=== PATIENT | female | born 1990 | race Caucasian/White ===

== ENCOUNTER 2017-01-22 12:47 | Emergency (ER) | payer OTHER ==
[~2017-01-22 12:47] MED LIST: ACET325 PO; CHLO.12%30 SSP; CLIN1CAP5 PO
[2017-01-22 12:49] VITALS: BP 95/75; PULSE 89; RESP 16; TEMP 98.2; O2SAT 98
--- NOTE | 2017-01-22 13:16 | PD ---
Physical Exam Date Seen by Provider: Jan 22, 2017 Time Seen by Provider: 13:15 Narrative 27-year-old female believes she is 9 weeks presents with abdominal pain and cramping. She does have dysuria. She denies vaginal bleeding at this time. Urinalysis is ordered. Vital signs are stable. Patient is awaiting placement Data Data Last Documented VS Vital Signs Date Time Temp Pulse Resp B/P (MAP) Pulse Ox O2 Delivery O2 Flow Rate FiO2 01/22/17 12:49 98.2 89 16 95/75 (82) 98 Orders Orders Urinalysis - C+S If Indicated (01/22/17 13:00) Ed Urine Pregnancytest Poc (01/22/17 13:00) MDM Medical Record Reviewed: Yes Supervised Visit with CHUCK: Yes Condition: Stable Kevan Dawn Jan 22, 2017 13:16
[2017-01-22 13:41] LABS: BACTERIA, URINE RARE /hpf; BLOOD, URINE NEG (NEG); COMMENT (UR) CULTURE INDICATED; CULTURE IF INDICATED CULTURE INDICATED; GLUCOSE,URINE NEG (NEG); KETONE, URINE NEG (NEG); MUCUS URINE FEW /lpf (OCC); NITRITE,URINE NEG (NEG); PH, URINE 6.5 (5.0-8.5); SQUAMOUS EPITHELIAL CELL URINE 5 /hpf (0-5); URINE COLOR YELLOW (YELLW/STRAW)
[2017-01-22] MEDS ORDERED: NITROFURANTOIN MONOHYD MACROCR 100 MG CAP PO ONE (14:45)
--- NOTE | 2017-01-22 14:45 | PD ---
HPI Chief Complaint: Complaint Time Seen by Provider: 14:39 Travel History International Travel<30 days: No Contact w/Intl Traveler<30days: No Traveled to known affect area: No History of Present Illness HPI C/O DYSURIA, FREQUENCY, URGENCY FOR PAST 2 DAYS, 4/10 WITH URINATION ONLY, NO N/ V/D/FEVER PFSH Past Medical History Blood Disorders: No Anxiety: Yes Depression: Yes Cancer: No Cardiovascular Problems: No Diminished Hearing: No Endocrine: No Genitourinary: No Immune Disorder: No Musculoskeletal: No Neurologic: No Psychiatric: Yes Reproductive: No Respiratory: No ?: : 3 Para: 1 Miscarriage: 2 Past Surgical History Section: Yes Social History Alcohol Use: Yes (occ) Tobacco Use: No Substance Use: Yes (meth/dilaudid iv) Allergies-Medications (Allergen,Severity, Reaction): Coded Allergies: penicillin G (Unverified Allergy, Severe, 12/16/16) Reported Meds & Prescriptions Reported Meds & Active Scripts Active Peridex Oral Rinse (Chlorhexidine Gluconate) 0.12 % Aziza 15 Ml SSP Q8HR 5 Days Clindamycin Hcl (Clindamycin HCl) 150 Mg Cap 2 Capl PO Q8HR 7 Days Tylenol (Acetaminophen) 325 Mg Tab 325 Mg PO Q6HR PRN Review of Systems Except as stated in HPI: all other systems reviewed are Neg Genitourinary: Positive: Urgency, Frequency, Dysuria Physical Exam Narrative GENERAL: SKIN: Warm and dry. HEAD: Atraumatic. Normocephalic. EYES: Pupils equal and round. No scleral icterus. No injection or drainage. ENT: No nasal bleeding or discharge. Mucous membranes pink and moist. NECK: Trachea midline. No JVD. CARDIOVASCULAR: Regular rate and rhythm. RESPIRATORY: No accessory muscle use. Clear to auscultation. Breath sounds equal bilaterally. GASTROINTESTINAL: Abdomen soft, non-tender, nondistended. MUSCULOSKELETAL: Extremities without clubbing, cyanosis, or edema. No obvious deformities. NEUROLOGICAL: Awake and alert. No obvious cranial nerve deficits. Motor grossly within normal limits. Five out of 5 muscle strength in the arms and legs. Normal speech. PSYCHIATRIC: Appropriate mood and affect; insight and judgment normal. Data Data Last Documented VS Vital Signs Date Time Temp Pulse Resp B/P (MAP) Pulse Ox O2 Delivery O2 Flow Rate FiO2 01/22/17 12:49 98.2 89 16 95/75 (82) 98 Orders Orders Urinalysis - C+S If Indicated (01/22/17 13:00) Ed Urine Pregnancytest Poc (01/22/17 13:00) Urine Culture (01/22/17 13:06) Nitrofurantoin Monohyd Macrocr (Macrobid (01/22/17 14:45) Labs Laboratory Tests Test 01/22/17 13:06 Urine Color YELLOW Urine Turbidity HAZY Urine pH 6.5 Urine Specific [place] 1.016 Urine Protein NEG mg/dL Urine Glucose (UA) NEG mg/dL Urine Ketones NEG mg/dL Urine Occult Blood NEG Urine Nitrite NEG Urine Bilirubin NEG Urine Urobilinogen LESS THAN 2.0 MG/DL Urine Leukocyte Esterase LARGE Urine RBC 7 /hpf Urine WBC 21 /hpf Urine Squamous Epithelial Cells 5 /hpf Urine Amorphous Sediment RARE Urine Bacteria RARE /hpf Urine Mucus FEW /lpf Microscopic Urinalysis Comment CULTURE INDICATED MDM Medical Decision Making Medical Screen Exam Complete: Yes Emergency Medical Condition: Yes Medical Record Reviewed: Yes Differential Diagnosis UTI V STERILE PYURIA Narrative Course PATIENT UA C/W UTI, WILL TREAT WITH MACROBID AND ZOFRAN AND REFER TO WOMEN'S CARE NOW Diagnosis Primary Impression: UTI (urinary tract infection) Qualified Codes: N30.00 - Acute cystitis without hematuria [facility] Patient Instructions: General Instructions, Urinary Tract Infection in Women ( ED) Scripts Nitrofurantoin Monohydrate Macrocrystals (Macrobid) 100 Mg Capsule 100 MG PO BID for Infection for 10 Days, #20 CAP 0 Refills Prov: Vargas Raya MD 01/22/17 Ondansetron Odt (Zofran Odt) 4 Mg Tab 4 MG SL Q6HR Y for Nausea/Vomiting, #21 TAB 0 Refills Prov: Vargas Raya MD 01/22/17 Disposition: 01 DISCHARGE HOME Condition: Stable Vargas Raya MD Jan 22, 2017 14:45
[2017-01-22] MEDS ORDERED: MACR100C2 PO (14:50)
[2017-01-22] MEDS ORDERED: ZOFR4TAB3 SL (14:50)
== END 2017-01-22 15:21 | disposition home or self-care (01) ==
LOC: NEPD 12:47
DX: O23.11 Infections of bladder in pregnancy, first trimester (principal); B96.20 Unspecified Escherichia coli [E. coli] as the cause of diseases classified elsewhere; Z3A.09 9 weeks gestation of pregnancy
CPT/HCPCS: 81001; 84703; 87077; 87086; 87186; 99284

== ENCOUNTER 2017-07-17 05:58 | Inpatient (IN) | payer OTHER ==
[~2017-07-17] VITALS: Ht 160 cm; Wt 55.8 kg
[~2017-07-17 05:58] MED LIST changes: -ACET325 PO; -CHLO.12%30 SSP; -CLIN1CAP5 PO; +MACR100C2 PO; +ZOFR4TAB3 SL
[2017-07-17] MEDS ORDERED: Prenatal Vitamin PO (06:09)
[2017-07-17] MEDS: LACTATED RINGER'S 1000 ML IV SCH (06:30)
[2017-07-17] MEDS ORDERED: LACTATED RINGER'S 1000 ML IV ONE (06:30)
[2017-07-17] MEDS ORDERED: CITRIC ACID-SODIUM CITRATE LIQ 30 ML UDC PO SCH (06:30)
[2017-07-17 06:47] LABS: AUTOMATED NEUTROPHIL # 5.4 TH/MM3 (1.8-7.7); BASOPHIL # 0.1 TH/MM3 (0-0.2); BASOPHIL % 0.8 % (0.0-2.0); EOSINOPHIL # 0.2 TH/MM3 (0-0.4); HEMATOCRIT 34.7 % (35.0-46.0); HEMOGLOBIN 10.9 GM/DL (11.6-15.3); LYMPH % 34.1 % (9.0-44.0); LYMPHOCYTE # 3.3 TH/MM3 (1.0-4.8); MEAN CELL VOLUME 80.2 FL (80.0-100.0); MEAN CORPUSCULAR HEMOGLOBIN 25.3 PG (27.0-34.0); MEAN CORPUSCULAR HGB CONC 31.5 % (32.0-36.0); MEAN PLATELET VOLUME 10.1 FL (7.0-11.0); MONO % 7.1 % (0.0-8.0); MONOCYTE # 0.7 TH/MM3 (0-0.9); PLATELET COUNT 149 TH/MM3 (150-450); RED BLOOD COUNT 4.32 MIL/MM3 (4.00-5.30); RED CELL DISTRIBUTION WIDTH 19.5 % (11.6-17.2); WHITE BLOOD COUNT 9.7 TH/MM3 (4.0-11.0)
[2017-07-17] MEDS ORDERED: MORPHINE SULFATE PF 5 MG/10 ML VIAL ONE (06:50)
[2017-07-17] MEDS ORDERED: CLINDAMYCIN 600 MG/NS 100 ML IV SCH ×2 (07:00)
[2017-07-17 07:29] LABS: BILIRUBIN, URINE NEG (NEG); BLOOD, URINE NEG (NEG); GLUCOSE,URINE NEG (NEG); KETONE, URINE NEG (NEG); NITRITE,URINE NEG (NEG); PH, URINE 7.5 (5.0-8.5); URINE COLOR YELLOW (YELLW/STRAW); URINE LEUKOCYTE ESTERASE MOD (NEG)
[2017-07-17] MEDS ORDERED: OXYTOCIN 30 UNITS-500ML PREMIX 500 ML ONE (09:01)
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
[2017-07-17] MEDS ORDERED: ACETAMINOPHEN 1000 MG/100 ML 100 ML IV ONE ×2 (09:30→11:15)
[2017-07-17] MEDS ORDERED: SODIUM CHLORIDE 0.9% FLUSH 10 ML FLUSH IV FLUSH PRN (09:30)
[2017-07-17] MEDS ORDERED: SIMETHICONE 80 MG CHEWABLE TAB PO PRN (09:30)
[2017-07-17] MEDS ORDERED: DOCUSATE SODIUM 50 MG/SENNA 8.6 MG TAB PO PRN (09:30)
[2017-07-17] MEDS ORDERED: ONDANSETRON HCL 4 MG/2 ML VIAL IV PUSH PRN (09:30)
[2017-07-17] MEDS ORDERED: OXYTOCIN 30 UNITS-500ML PREMIX 500 ML IV ONE (09:30)
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
[2017-07-17] MEDS ORDERED: OXYTOCIN 10 UNIT/ML AMP IV ONE (12:00)
[2017-07-17] MEDS ORDERED: PHENYLEPH/NS 1000 MCG/10 ML SYR IV ONE (12:00)
[2017-07-17] MEDS ORDERED: ONDANSETRON HCL 4 MG/2 ML VIAL IV ONE (12:00)
[2017-07-17] MEDS ORDERED: DEXAMETHASONE SOD PHOS 4 MG/ML VIAL IV ONE (12:00)
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
--- NOTE | 2017-07-17 13:58 | ECHRPT ---
Indication: ABNORMAL EKG/ VEGETATIONS CONCLUSIONS Normal left ventricular size. Wall thickness is normal. The left ventricular systolic function is low normal with an estimated ejection fraction in the rang e of 50- 55%. Normal wall motion. There is mild tricuspid valve regurgitation. BP: / HR: Rhythm: MEASUREMENTS (Male / Female) Normal Values Technical Quality:Good 2D ECHO LV Diastolic Diameter PLAX 5.2 cm 4.2 - 5.9 / 3.9 - 5.3 cm LV Systolic Diameter PLAX 4.0 cm IVS Diastolic Thickness 0.9 cm 0.6 - 1.0 / 0.6 - 0.9 cm LVPW Diastolic Thickness 0.6 cm 0.6 - 1.0 / 0.6 - 0.9 cm LV Relative Wall Thickness 0.3 RV Internal Dim ED PLAX 2.0 cm DOPPLER Mitral E Point Velocity 83.9 cm/s Mitral A Point Velocity 66.6 cm/s Mitral E to A Ratio 1.3 TR Peak Velocity 262.0 cm/s TR Peak Gradient 27.5 mmHg FINDINGS LEFT VENTRICLE Normal left ventricular size. Wall thickness is normal. The left ventricular systolic function is low normal with an estimated ejection fraction in the rang e of 50- 55%. Normal wall motion. RIGHT VENTRICLE Normal right ventricular size and systolic function. LEFT ATRIUM The left atrial size is normal. RIGHT ATRIUM The right atrial size is normal. ATRIAL SEPTUM Normal atrial septal thickness without atrial level shunting by limited color doppler interrogation. AORTA The aortic root and proximal ascending aorta are normal in size on limited imaging. MITRAL VALVE Trace mitral valve regurgitation. AORTIC VALVE Trileaflet aortic valve. No aortic valve stenosis or regurgitation. TRICUSPID VALVE There is mild tricuspid valve regurgitation. PULMONARY VALVE The pulmonary valve is not well visualized. VESSELS The inferior vena cava is normal in size. PERICARDIUM No pericardial effusion. Preston Truong MD (Electronically Signed) Final Date:17 July 2017 13:58
[2017-07-17] MEDS: LACTATED RINGER'S 1000 ML INJ 1,000 ML IV SCH (15:15)
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
[2017-07-17 16:00] VITALS: BP 99/60; PULSE 60; RESP 16; TEMP 97.5; O2SAT 96
[2017-07-17] MEDS: IBUPROFEN 600 MG TAB PO PRN (16:45)
--- NOTE | 2017-07-17 17:07 | MB ---
cc: Preston Truong MD DATE OF CONSULT: 07/17/2017 REASON FOR CONSULTATION: Bradycardia. HISTORY OF PRESENT ILLNESS: The patient is a 27-year-old white female with no major past medical history who today after section was noted to have bradycardia with heart rates in the 40s and 50s. The patient denies any dizziness, syncope, near syncope, shortness of breath, chest pain, pedal edema, paroxysmal nocturnal dyspnea, nausea, or headache. PAST MEDICAL HISTORY: None. CARDIAC MEDICATIONS: None. ALLERGIES: PENICILLIN. FAMILY HISTORY: There is no significant family history of cardiac disease. SOCIAL HISTORY: The patient denies alcohol or tobacco abuse. She had been abusing opiates prior to her arrest. REVIEW OF SYSTEMS: As in the history of present illness, otherwise negative or noncontributory. She also denies abdominal pain, melena, bright red blood per rectum, fevers, and vomiting. PHYSICAL EXAMINATION: VITAL SIGNS: Blood pressure has not been taken. Heart rate is 50 by palpation. GENERAL: She is a well-developed, well-nourished white female, in no acute distress. NECK: Jugular venous pressure is normal. Carotid pulses are 2+ bilaterally and without bruits. CHEST: Examination reveals clear lung callaway. CARDIAC: She has a regular rhythm and rate without S3, S4 or murmur. ABDOMEN: Aggressive palpation was not pursued. Bowel sounds are present. EXTREMITIES: Reveals no clubbing, cyanosis or edema. DIAGNOSTIC STUDIES: EKG shows sinus bradycardia, otherwise normal EKG. Laboratory data includes WBC 9.7, hemoglobin 10.9, platelets 149. Negative drug screen. IMPRESSION: Mild asymptomatic bradycardia in this 27-year-old white female with no major past medical history, status post uncomplicated section today. She has demonstrated no definite high degree atrioventricular block. Her current heart rate appears to be in the 50s. She has been completely asymptomatic. The etiology of the bradycardia is not entirely clear. Echocardiogram today was also unrevealing. RECOMMENDATIONS: Overnight monitoring. She can be discharged from the monitoring unit tomorrow morning if she remains stable. We will followup as needed. MD BRIJESH Meade/ESTRELLA , 04:51 PM , 05:06 PM AKIN
[2017-07-17] MEDS ORDERED: OXYTOCIN 30 UNITS-500ML PREMIX 500 ML IV PRN (19:30)
[2017-07-17 20:00] VITALS: BP 109/63; PULSE 65; RESP 18; TEMP 97.8; O2SAT 98
[2017-07-17] MEDS: SODIUM CHLORIDE 0.9% FLUSH 10 ML FLUSH IV FLUSH SCH (21:00)
[2017-07-17] MEDS ORDERED: ZOLPIDEM TARTRATE 5 MG TAB PO PRN (21:00)
[2017-07-17 23:00] VITALS: PULSE 82
[2017-07-18] VITALS (9 sets, daily range): BP systolic 111–131; BP diastolic 62–80; PULSE 57–84; RESP 16–18; TEMP 97.4–99; O2SAT 96–99
[2017-07-18] MEDS: LACTATED RINGER'S 1000 ML INJ 1,000 ML IV SCH (00:24)
[2017-07-18] MEDS: LACTATED RINGER'S 1000 ML IV SCH ×3 (02:30→15:31)
[2017-07-18] MEDS ORDERED: PILL SPLITTER OTHER PRN (07:45)
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
[2017-07-18] MEDS: SODIUM CHLORIDE 0.9% FLUSH 10 ML FLUSH IV FLUSH SCH (09:00)
[2017-07-18] MEDS: BUPRENORPHINE HCL 8 MG SUBLINGUAL TAB SL SCH (09:10)
[2017-07-18 10:16] LABS: AUTOMATED NEUTROPHIL # 8.3 TH/MM3 (1.8-7.7); BASOPHIL # 0.1 TH/MM3 (0-0.2); BASOPHIL % 0.8 % (0.0-2.0); EOSINOPHIL # 0.1 TH/MM3 (0-0.4); EOSINOPHIL % 0.8 % (0.0-4.0); HEMATOCRIT 29.9 % (35.0-46.0); HEMOGLOBIN 9.2 GM/DL (11.6-15.3); LYMPH % 21.4 % (9.0-44.0); LYMPHOCYTE # 2.5 TH/MM3 (1.0-4.8); MEAN CELL VOLUME 81.3 FL (80.0-100.0); MEAN CORPUSCULAR HEMOGLOBIN 25.1 PG (27.0-34.0); MEAN CORPUSCULAR HGB CONC 30.9 % (32.0-36.0); MEAN PLATELET VOLUME 10.9 FL (7.0-11.0); MONO % 6.6 % (0.0-8.0); MONOCYTE # 0.8 TH/MM3 (0-0.9); NEUT % 70.4 % (16.0-70.0); PLATELET COUNT 148 TH/MM3 (150-450); RED BLOOD COUNT 3.68 MIL/MM3 (4.00-5.30); RED CELL DISTRIBUTION WIDTH 19.7 % (11.6-17.2); WHITE BLOOD COUNT 11.8 TH/MM3 (4.0-11.0)
[2017-07-18 11:02] LABS: ALBUMIN 1.5 GM/DL (3.4-5.0); AST (GOT) 53 U/L (15-37); BLOOD UREA NITROGEN 9 MG/DL (7-18); CALCIUM 8.1 MG/DL (8.5-10.1); CHLORIDE 105 MEQ/L (98-107); CREATININE 0.58 MG/DL (0.50-1.00); GLOMERULAR FILTRATION RATE 125 ML/MIN (>89); SODIUM (NA) 140 MEQ/L (136-145)
[2017-07-18 11:05] LABS: ALKALINE PHOSPHATASE 191 U/L (45-117); ALT (GPT) 40 U/L (10-53); GLUCOSE,RANDOM 80 MG/DL (74-106); TOTAL BILIRUBIN ADULT 0.3 MG/DL (0.2-1.0); TOTAL PROTEIN 5.6 GM/DL (6.4-8.2)
[2017-07-18] MEDS: IBUPROFEN 600 MG TAB PO PRN ×2 (15:43→23:18)
[2017-07-18] MEDS ORDERED: DIPHTH/TETANUS/ACEL PERTUSSIS (BOOSTER) 0.5 ML VIAL/PFS IM ONE (16:00)
[2017-07-18] MEDS ORDERED: MEASLES, MUMPS, RUBELLA VACCINE 0.5 ML VIAL SQ ONE (16:00)
[2017-07-18] MEDS: SULFAMETHOXAZOLE-TRIMETHOPRIM DS 800-160 MG TAB PO SCH ×2 (17:42→21:00)
--- NOTE | 2017-07-18 18:20 | EKG ---
Date Performed: 07/17/2017 Time Performed: 10:25:57 PTAGE: 27 years EKG: SINUS BRADYCARDIA WITH SINUS ARRHYTHMIA LOW QRS VOLTAGE IN PRECORDIAL LEADS POSSIBLE RIGHT VENTRICULAR CONDUCTION DELAY BORDERLINE ECG Compared to PREVIOUS TRACING , no change. PREVIOUS TRACIN02/03/2014 19.00 DOCTOR: Tan Dunham Interpretating Date/Time 07/18/2017 18:17:46
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
[2017-07-19] MEDS ORDERED: SULF1TAB23 PO (09:01)
[2017-07-19 09:15] VITALS: BP 116/71; PULSE 98; RESP 18; TEMP 98.2
[2017-07-19] MEDS: SODIUM CHLORIDE 0.9% FLUSH 10 ML FLUSH IV FLUSH SCH (09:15)
[2017-07-19] MEDS: BUPRENORPHINE HCL 8 MG SUBLINGUAL TAB SL SCH (09:16)
[2017-07-19] MEDS: SULFAMETHOXAZOLE-TRIMETHOPRIM DS 800-160 MG TAB PO SCH (09:16)
[2017-07-19] MEDS: LACTATED RINGER'S 1000 ML IV SCH (12:54)
[2017-07-19] MEDS: IBUPROFEN 600 MG TAB PO PRN (13:56)
[2017-07-20] MEDS: IBUPROFEN 600 MG TAB PO PRN (06:03)
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
[2017-07-20] MEDS ORDERED: IBUP-232 PO (07:15)
[2017-07-20] MEDS ORDERED: BUPR8SUB SL (07:24)
[2017-07-20 08:02] VITALS: BP 104/67; PULSE 94; RESP 18; TEMP 98.1
[2017-07-20] MEDS: LACTATED RINGER'S 1000 ML IV SCH ×2 (09:07→14:32)
[2017-07-20] MEDS: SODIUM CHLORIDE 0.9% FLUSH 10 ML FLUSH IV FLUSH SCH (09:08)
[2017-07-20] MEDS: BUPRENORPHINE HCL 8 MG SUBLINGUAL TAB SL SCH (09:47)
[2017-07-20] MEDS: SULFAMETHOXAZOLE-TRIMETHOPRIM DS 800-160 MG TAB PO SCH (09:48)
--- NOTE | 2017-07-20 11:19 | PD.PSY.CON ---
Provisional Diagnosis Admission Date Jul 17, 2017 at 05:58 [place] I. Adjustment disorder with depressed mood vs baby blues, opiate use disorder in early sustained remission in a partial agonist. [place] II. Deferred [place] III. Hepatitis C, [place] IV. Incarcerated, history of drug abuse [place] V. 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 POD #3. Her plan is to go straight to [facility]. Consulted to psychiatry due to flat affect, suggest the symptoms of depression. Chart was reviewed. On psychiatric evaluation the patient is calm, cooperative, pleasant. She reports that she feels very happy to have her baby, at times she has been sad "because I am going to separate from my baby to go back to longterm, but I will get her back soon". She also states that she is motivated to continue a strengthening her life and going to an addiction program after being released. At this moment the patient denies anhedonia, she denies hopelessness, she denies helplessness, she denies suicidal and homicidal ideation, she denies visual and auditory hallucinations. During my evaluation the patient smiles often, she is able to share with me several plans for the future, such as going to [facility], keeping her sobriety, getting back her 7 years old son, going back to [employer] school. She does not present any paranoia, delusions, ideas of reference, loosening of associations, attention deficit, fluctuation of consciousness. Patient is fully oriented 3. She denies the use of illegal drugs and alcohol in the last month. Review of Systems Constitutional: DENIES: Diaphoretic episodes, Fatigue, Fever, Weight gain, Weight loss, Chills, Dizziness, Change in appetite, Night Sweats Endocrine: DENIES: Abnorml menstrual pattern, Heat/cold intolerance, Polydipsia , Polyuria, Polyphagia Eyes: DENIES: Blurred vision, Diplopia, Eye inflammation, Eye pain, Vision loss , Photosensitivity, Double Vision Ears, nose, mouth, throat: DENIES: Tinnitus, Hearing loss, Vertigo, Nasal discharge, Oral lesions, Throat pain, Hoarseness, Ear Pain, Running Nose, Epistaxis, Sinus Pain, Toothache, Odynophagia Respiratory: DENIES: Apneas, Cough, Snoring, Wheezing, Hemoptysis, Sputum production, Shortness of breath Cardiovascular: DENIES: Chest pain, Palpitations, Syncope, Dyspnea on Exertion , PND, Lower Extremity Edema, Orthopnea, Claudication Gastrointestinal: DENIES: Abdominal pain, Black stools, Bloody stools, Constipation, Diarrhea, Nausea, Vomiting, Difficulty Swallowing, Anorexia Genitourinary: DENIES: Abnormal vaginal bleeding, Dysmenorrhea, Dyspareunia, Sexual dysfunction, Urinary frequency, Urinary incontinence, Urgency, Hematuria , Dysuria, Nocturia, Vaginal discharge Musculoskeletal: DENIES: Joint pain, Muscle aches, Stiffness, Joint Swelling, Back pain, Neck pain Integumentary: DENIES: Abnormal pigmentation, Pruritus, Rash, Nail changes, Breast masses, Breast skin changes, Nipple discharge Immunologic/allergic: DENIES: Eczema, Urticaria Neurologic: DENIES: Abnormal gait, Headache, Localized weakness, Paresthesias, Seizures, Speech Problems, Tremor, Poor Balance Psychiatric: DENIES: Anxiety, Confusion, Mood changes, Depression, Hallucinations, Agitation, Suicidal Ideation, Homicidal Ideation, Delusions Past Family Social History Coded Allergies: penicillin G (Unverified Allergy, Severe, 01/22/17) Active Scripts Buprenorphine (Buprenorphine) 8 Mg Subl, 4 MG SL DAILY for maintenance, #15 TAB Prov:Ranad Song MD 07/20/17 Ibuprofen (Ibuprofen) 600 Mg Tab, 600 MG PO Q6H Y for CRAMPING, #20 TAB Prov:Randa Song MD 07/20/17 Sulfamethoxazole-Trimethoprim (Sulfamethoxazole-Trimethoprim) 800-160 Mg Tab, 1 TAB PO Q12HR for Infection for 2 Days, #4 TAB Prov:Jamie Brandon MD 07/19/17 Reported Medications [ Vitamin] No Conflict Check, 1 TAB PO DAILY 07/17/17 Discontinued Scripts Nitrofurantoin Monohydrate Macrocrystals (Macrobid) 100 Mg Capsule, 100 MG PO BID for Infection for 10 Days, #20 CAP 0 Refills Prov:Vargas Raya MD 01/22/17 Ondansetron Odt (Zofran Odt) 4 Mg Tab, 4 MG SL Q6HR Y for Nausea/Vomiting, #21 TAB 0 Refills Prov:Vargas Raya MD 01/22/17 Current Medications Medications (Trade) Dose Ordered Sig/Shayan Route Start Time Stop Time Status Last Admin Lactated Ringer's 1,000 ml @ 150 mls/hr Q6H40M IV 07/17/17 06:30 07/18/17 15:31 Clindamycin Phosphate 600 mg/ Sodium Chloride 104 ml @ 208 mls/hr MANAGER MANAGED CARE IV 07/17/17 07:00 (NS Flush) 2 ml BID IV FLUSH 07/17/17 21:00 (NS Flush) 2 ml UNSCH PRN IV FLUSH 07/17/17 09:30 (Mylicon Chew) 80 mg QID PRN PO 07/17/17 09:30 (Motrin) 600 mg Q6H PRN PO 07/17/17 09:30 07/20/17 06:03 ([place]-Colace) 2 tab Q12H PRN PO 07/17/17 09:30 07/20/17 06:04 (Ambien) 5 mg HS PRN PO 07/17/17 21:00 (Zofran Inj) 4 mg Q6H PRN IV PUSH 07/17/17 09:30 (Buprenorphine) 4 mg DAILY SL 07/18/17 09:00 07/20/17 09:47 (Pill Splitter) 1 ea UNSCH PRN OTHER 07/18/17 07:45 (Bactrim Ds 800-160 Mg) 1 tab Q12HR PO 07/18/17 17:00 07/20/17 09:48 Family Psych History She denies family psychiatric history Social History Patient was born in [place], raised in [place], but , she has 2 kids, she has a 7 years old's on in because to the of his grandfather , her highest level of education is some college Patient's Strengths (min. 2) On drug treatment Physical Exam Vital Signs Vital Signs Date Time Temp Pulse Resp B/P (MAP) Pulse Ox O2 Delivery O2 Flow Rate FiO2 07/20/17 08:02 98.1 94 18 104/67 (79) 07/18/17 16:00 96 Lab Results Date/Time Source Procedure Growth Status 07/17/17 06:00 Urine Clean Catch Urine Culture - Final Group B Beta Strep Complete Mental Status Examination Appearance: Appropriate Consciousness: Alert Orientation: x4 Motor Activity: Normal gait Speech: Unremarkable Language: Adequate Fund of Knowledge: Adequate Attention and Concentration: Adequate Memory: Unremarkable Mood: Appropriate Affect: Appropriate Thought Process & Associations: Intact Thought Content: Appropriate Hallucination Type: None Delusion Type: None Suicidal Ideation: No Suicidal Plan: No Suicidal Intention: No Homicidal Ideation: No Homicidal Plan: No Homicidal Intention: No Insight: Adequate Judgment: Adequate Assessment & Plan Problem List: (1) Adjustment disorder with depressed mood ICD Codes: F43.21 - Adjustment disorder with depressed mood Assessment & Plan: At the moment of my evaluation the patient does not present any significant, acute, concerning symptomatology of depression, anxiety, ney or psychosis. The patient denies anhedonia, she denies hopelessness, she denies helplessness, she denies suicidal and homicidal ideation, she denies visual and auditory hallucinations. She does not present any paranoia, delusions, ideas of reference, loosening of associations, ney, attention deficit, or fluctuation of consciousness during this evaluation. She is fully oriented 3. She is future oriented, with well identified plans for the future and she is already in treatment of opiate dependence with buprenorphine 4 mg daily. At this moment patient does not present any neuropsychiatric symptoms that require immediate treatment, but she has high risk for depression and will benefit of outpatient counseling and close monitoring of psychiatric symptoms. Extensive psychoeducation, brief supportive psychotherapy provided. Also motivational interview provided. He does not meet criteria for involuntary psychiatric admission at this moment. Consult appreciated. Assessment & Plan Estimated LOS: Ralf Cedeno MD Jul 20, 2017 11:18
--- NOTE | 2017-07-22 08:17 | MP ---
cc: Randa Song MD DATE OF OPERATION: 07/17/2017 PREOPERATIVE DIAGNOSIS: This is a 38-week intrauterine with suspected intrauterine growth restriction, heroin used, incarcerated, previous section and no care. POSTOPERATIVE DIAGNOSIS: This is a 38-week intrauterine with suspected intrauterine growth restriction, heroin used, incarcerated, previous section and no care, with a large lower uterine segment window. PROCEDURE PERFORMED: Repeat low transverse segment section. ANESTHESIA: Spinal with Duramorph. SURGEON: Randa Song MD PRODUCT SAFETY CONSULTANT: OB staff. FINDINGS: A living female with Apgars 8 at 1 and 9 at 5, weighing 7 pounds, was delivered from [facility] with clear fluid and a true knot in the cord. The placenta was posterior, calcified, intact. The fluid was adequate and clear. The lower uterine segment had no myometrium or endometrium whatsoever. There was simply serosa and amnion where the incision was made to reach the infant. ESTIMATED BLOOD LOSS: 400 milliliters. COUNTS: Sponge, instrument and needle count were correct. DISPOSITION: Mom and baby tolerated the procedure. DESCRIPTION OF PROCEDURE: The patient had been evaluated twice in my office, being brought from the senior living. Evaluation at this late time for care warranted section and the decision was made to proceed on Thursday. She was brought from the senior living to the labor and delivery. She was consented appropriately. She was taken to the back, prepped and draped in the usual sterile fashion in the dorsal supine position with the weight off the vena cava, sequential stockings had been placed. A Andrade catheter was placed. She had received 2 grams of Ancef IV. A timeout was performed with all in attendance. After assuring adequate analgesia, a Pfannenstiel incision was made through her previous incision and taken down to the rectus fascia with the knife. The rectus fascia was incised and taken off the rectus muscle. The rectus muscle was in the midline. The parietal peritoneum was entered sharply. The window in the lower uterine segment was noted and a knife was used to just carefully enter into the thin area and clear fluid was obtained. It was bluntly extended in the vertical fashion and the was delivered with the findings as noted above. The cord was clamped x 2, cut and the was handed off to the neonatology team and attending. The baby did get 45 seconds of delayed cord clamping. Cord gas was not obtained. The placenta was delivered manually intact and sent to pathology. The uterus was exteriorized and cleaned with a lap sponge and closed with chromic in a running interlocking fashion with a second horizontal imbricating stitch. It was then replaced in the abdominal cavity with copious irrigation performed. Then, the rectus muscle was approximated with the visceral peritoneum in a running fashion. The fascia was closed with #1 Vicryl in a running fashion. Subcutaneous layer was closed with 3-0 plain and the skin was closed with 4-0 Vicryl on a Alex needle. Estimated blood loss was 400 milliliters. Sponge, instrument and needle count were correct. She tolerated the procedure well and she went to the recovery room in stable condition. MD VIVIAN Machuca/JERRY , 06:22 PM , 06:40 PM
== END 2017-07-20 15:20 | DRG 765 ==
LOC: H2EB 05:58 → EEVIPCON 05:58 → H2EA 09:58 → N05A 15:46 → H1EA 07-18 16:58
PROVIDERS: ADMIT Obstetrics & Gynecology; ATTEND Obstetrics & Gynecology
PROC: 10D00Z1 Extraction of Products of Conception, Low, Open Approach (ICD-10-PCS; principal; 2017-07-17)
DX: O34.219 Maternal care for unspecified type scar from previous cesarean delivery (principal); O99.344 Other mental disorders complicating childbirth; O99.324 Drug use complicating childbirth; F11.10 Opioid abuse, uncomplicated; F43.21 Adjustment disorder with depressed mood; O99.12 Other diseases of the blood and blood-forming organs and certain disorders involving the immune mechanism complicating childbirth; D69.6 Thrombocytopenia, unspecified; O23.43 Unspecified infection of urinary tract in pregnancy, third trimester; B95.1 Streptococcus, group B, as the cause of diseases classified elsewhere; O98.42 Viral hepatitis complicating childbirth; B19.20 Unspecified viral hepatitis C without hepatic coma; O90.89 Other complications of the puerperium, not elsewhere classified; R00.1 Bradycardia, unspecified; O25.2 Malnutrition in childbirth; Z68.21 Body mass index [BMI] 21.0-21.9, adult; O69.2XX0 Labor and delivery complicated by other cord entanglement, with compression, not applicable or unspecified; Z59.0 Homelessness; K02.9 Dental caries, unspecified; K08.89 Other specified disorders of teeth and supporting structures; Z3A.38 38 weeks gestation of pregnancy; Z37.0 Single live birth; Z91.410 Personal history of adult physical and sexual abuse
CPT/HCPCS: 59025; 80053; 80074; 80307; 81001; 82805; 85025; 86403; 86592; 86703; 86762; 86850; 86900; 86901; 87086; 90707; 90715; 93005; 93306; J0131; J1100; J2274; J2370; J2405; J2590; J7120